=== PATIENT | male | born 1955 | race Caucasian/White ===

== ENCOUNTER 2023-12-08 08:50 | Outpatient (CLI) | payer MEDICARE, MEDICAID | END 2023-12-08 23:59 | disposition home or self-care (01) | LOC: VAS 08:50 | PROVIDERS: ATTEND Internal Medicine Cardiovascular Disease | DX: I65.21 Occlusion and stenosis of right carotid artery (principal); R09.89 Other specified symptoms and signs involving the circulatory and respiratory systems | CPT/HCPCS: 93880 ==